=== PATIENT | male | born 1965 | race Caucasian/White ===

== ENCOUNTER 2022-10-27 14:56 | Inpatient (IN) | payer OTHER ==
[2022-10-27 18:09] LABS: BASO % 0.7 % (0-2.0); EOS % 1.6 % (0-4.5); HEMATOCRIT 45.2 % (35.4-49); HEMOGLOBIN 15.5 GM/dL (11.7-16.9); MCH 31.1 pg (25.7-33.7); MCHC 34.2 g/dl (32.0-35.9); MEAN CELL VOLUME 91.1 fl (80-96); MEAN PLT VOLUME 9.4 fl (7.5-11.1); MONO % 5.6 % (3.8-10.2); NEUT % 66.1 % (42.8-82.8); PLATELET COUNT 265 10^3/uL (134-434); RBC 4.97 M/mm3 (4.00-5.60); RDW 14.1 % (11.9-15.9); WHITE BLOOD COUNT 7.4 K/mm3 (4.0-10.0)
[2022-10-27 18:19] LABS: INR 0.95 (0.83-1.09)
[2022-10-27 18:22] LABS: ACTIVATED PTT 35.2 SECONDS (25.2-36.5)
[2022-10-27 18:27] LABS: POTASSIUM 4.6 mmol/L (3.5-5.1)
[2022-10-27 18:29] LABS: CALCIUM 9.1 mg/dL (8.5-10.1)
[2022-10-27 18:30] LABS: ALBUMIN 3.8 g/dl (3.4-5.0); BLOOD UREA NITROGEN 14.9 mg/dL (7-18)
[2022-10-27 18:33] LABS: CREATININE 0.9 mg/dL (0.55-1.3)
[2022-10-27 18:34] LABS: BILIRUBIN,TOTAL 0.3 mg/dL (0.2-1); TOT PROT 7.9 g/dl (6.4-8.2)
[2022-10-27 18:42] LABS: LACTIC ACID 3.2 mmol/L (0.4-2.0)
[2022-10-27] MEDS ORDERED: LACTATED RINGERS SOLUTION 1000 ML INFUS.BAG IV ONE (19:26)
[2022-10-27] MEDS ORDERED: PIPERACILLIN/TAZOB 4.5 GM 4.5 GM in DEXTROSE 5%-WATER 100 ML IVPB ONE (19:26)
[2022-10-27] MEDS ORDERED: VANCOMYCIN 1,000 MG in DEXTROSE 5%-WATER - 250 ML IVPB ONE (19:26)
[2022-10-27] MEDS ORDERED: PIPERACILLIN/TAZOB 4.5 GM 4.5 GM/100 ML BAG IVPB ONE (20:03)
[2022-10-27] MEDS ORDERED: VANCOMYCIN/WATER FOR INJ (PEG) 1,000 MG/200 ML BAG IVPB ONE ×2 (20:24→20:41)
[2022-10-27 21:12] LABS: LACTIC ACID 2.8 mmol/L (0.4-2.0)
[2022-10-27] MEDS: SODIUM CHLORIDE 1,000 ML IV SCH (23:58)
[2022-10-28] MEDS: INSULIN (LEVEMIR) 100 UNITS/ML UNITS SQ SCH ×2 (02:52→21:13)
[2022-10-28] MEDS: PIPERACILLIN/TAZOB 3.375 GM 3.375 GM in DEXTROSE 5%-WATER - 50 ML IVPB SCH ×4 (04:13→16:14)
[2022-10-28 04:42] VITALS: BMI 27.4
[2022-10-28] MEDS: INSULIN SLIDING SCALE (NOVOLOG) 1 VIAL SQ SCH ×4 (06:17→21:12)
[2022-10-28] MEDS ORDERED: VANCOMYCIN HCL 1,500 MG in DEXTROSE 5%-WATER - 250 ML IVPB SCH (09:00)
[2022-10-28] MEDS ORDERED: VANCOMYCIN PREMIX 1.5 GM 1,500 MG/300 ML BAG IVPB SCH (09:00)
[2022-10-28 09:05] LABS: HEMATOCRIT 42.8 % (35.4-49); HEMOGLOBIN 14.5 GM/dL (11.7-16.9); MCH 31.3 pg (25.7-33.7); MEAN PLT VOLUME 9.2 fl (7.5-11.1); PLATELET COUNT 231 10^3/uL (134-434); RBC 4.65 M/mm3 (4.00-5.60); RDW 13.5 % (11.9-15.9); WHITE BLOOD COUNT 5.5 K/mm3 (4.0-10.0)
[2022-10-28 09:12] LABS: POTASSIUM 4.1 mmol/L (3.5-5.1)
[2022-10-28 09:14] LABS: CALCIUM 8.9 mg/dL (8.5-10.1)
[2022-10-28 09:15] LABS: ALBUMIN 3.4 g/dl (3.4-5.0)
[2022-10-28 09:18] LABS: CREATININE 0.9 mg/dL (0.55-1.3)
[2022-10-28 09:19] LABS: BILIRUBIN,TOTAL 0.5 mg/dL (0.2-1)
[2022-10-28 09:20] LABS: TOT PROT 7.2 g/dl (6.4-8.2)
[2022-10-28] MEDS: ENOXAPARIN NA (PORCINE) 40 MG/0.4 ML DISP.SYRIN SQ SCH (09:33)
[2022-10-28] MEDS: COLLAGENASE CLOSTRIDIUM HIST. 30 GRAMS TUBE TP SCH (14:09)
[2022-10-28] MEDS: SODIUM CHLORIDE 1,000 ML IV SCH (16:00)
[2022-10-28] MEDS ORDERED: INSULIN (NOVOLOG) ASPART 100 UNITS/ML 10ML VIAL ONE ×3 (17:39→22:33)
[2022-10-28] MEDS: AMOX TR/POT CLAV 875MG/125MG TABLETS (FP) PO SCH (17:53)
[2022-10-29] MEDS: SODIUM CHLORIDE 1,000 ML IV SCH (00:15)
[2022-10-29] MEDS ORDERED: INSULIN (NOVOLOG) ASPART 100 UNITS/ML 10ML VIAL ONE (05:56)
[2022-10-29] MEDS: INSULIN SLIDING SCALE (NOVOLOG) 1 VIAL SQ SCH ×3 (06:30→17:13)
[2022-10-29] MEDS: AMOX TR/POT CLAV 875MG/125MG TABLETS (FP) PO SCH ×2 (08:09→18:02)
[2022-10-29] MEDS: COLLAGENASE CLOSTRIDIUM HIST. 30 GRAMS TUBE TP SCH (11:02)
[2022-10-29] MEDS: ENOXAPARIN NA (PORCINE) 40 MG/0.4 ML DISP.SYRIN SQ SCH (11:02)
[2022-10-29 15:14] VITALS: BP 140/88; PULSE 70; RESP 18; TEMP 97.9
== END 2022-10-29 18:40 | disposition home or self-care (01) | DRG 383 ==
LOC: JER 14:56 → JERBED 19:55 → J8W 10-28 02:21
PROVIDERS: ADMIT Internal Medicine; ATTEND Nurse Practitioner Family
PROC: 0Y9N0ZZ Drainage of Left Foot, Open Approach (ICD-10-PCS; principal; 2022-10-27)
DX: L08.89 Other specified local infections of the skin and subcutaneous tissue (principal); E87.20 Acidosis, unspecified; M79.675 Pain in left toe(s); M79.674 Pain in right toe(s); L03.032 Cellulitis of left toe
CPT/HCPCS: 36415; 73630-TC-LT; 73630-TC-RT-FY; 80053; 82553; 82962; 83036; 83605; 84484; 85025; 85027; 85610; 85651; 85730; 86140; 86850; 86900; 86901; 87040; 87070; 87205; 93005; 93010; 99285-25

== ENCOUNTER 2023-07-22 10:06 | Emergency (ER) | payer OTHER ==
[2023-07-22 10:10] VITALS: BP 131/67; PULSE 73; RESP 18; TEMP 97.1; BMI 28.2
[2023-07-22] MEDS ORDERED: KETOROLAC TROMETHAMINE 30 MG/1 ML VIAL ONE (13:04)
[2023-07-22] MEDS: KETOROLAC TROMETHAMINE 30 MG/1 ML VIAL IM ONE (13:07)
== END 2023-07-22 13:57 | disposition home or self-care (01) ==
LOC: JERFT 10:06
PROC: 3E0233Z Introduction of Anti-inflammatory into Muscle, Percutaneous Approach (ICD-10-PCS; principal; 2023-07-22)
DX: S62.323A Displaced fracture of shaft of third metacarpal bone, left hand, initial encounter for closed fracture (principal); M79.642 Pain in left hand; W20.8XXA Other cause of strike by thrown, projected or falling object, initial encounter; Y99.0 Civilian activity done for income or pay
CPT/HCPCS: 73110-TC-LT-FY; 73130-TC-LT-FY; 99284-25

== ENCOUNTER 2024-01-09 19:40 | Emergency (ER) | payer OTHER ==
[2024-01-09 20:12] VITALS: BP 121/76; PULSE 74; RESP 20; TEMP 98.8; BMI 29.0
[2024-01-09 22:36] LABS: BASO % 0.8 % (0-2.0); EOS % 2.4 % (0-4.5); HEMATOCRIT 42.2 % (35.4-49); HEMOGLOBIN 14.3 GM/dL (11.7-16.9); LYMPH % 19.2 % (8-40); MCH 30.8 pg (25.7-33.7); MCHC 33.8 g/dl (32.0-35.9); MEAN CELL VOLUME 91.2 fl (80-96); MEAN PLT VOLUME 9.1 fl (7.5-11.1); MONO % 9.7 % (3.8-10.2); NEUT % 67.9 % (42.8-82.8); PLATELET COUNT 189 10^3/uL (134-434); RBC 4.63 M/mm3 (4.00-5.60); RDW 13.9 % (11.9-15.9); WHITE BLOOD COUNT 8.1 K/mm3 (4.0-10.0)
[2024-01-09 22:47] LABS: POTASSIUM 4.9 mmol/L (3.5-5.1)
[2024-01-09 22:48] LABS: CALCIUM 9.2 mg/dL (8.5-10.1)
[2024-01-09 22:49] LABS: BLOOD UREA NITROGEN 22.5 mg/dL (7-18)
[2024-01-09 22:52] LABS: CREATININE 0.9 mg/dL (0.55-1.3)
[2024-01-09 23:44] LABS: HIV INTERPRETATION NEGATIVE (NEGATIVE)
[2024-01-09] MEDS ORDERED: DIPHTH,PERTUSS(ACELL),TET 0.5 ML DISP.SYRIN IM ONE (23:53)
[2024-01-09] MEDS: AMPICILLIN NA/SULBACTAM NA 3 GM in SODIUM CHLORIDE 100 ML IVPB ONE (23:53)
[2024-01-09] MEDS: DIPHTH,PERTUSS(ACELL),TET 0.5 ML DISP.SYRIN IM ONE (23:54)
== END 2024-01-10 00:32 | disposition home or self-care (01) ==
LOC: JERFT 19:40
PROC: 3E03329 Introduction of Other Anti-infective into Peripheral Vein, Percutaneous Approach (ICD-10-PCS; principal; 2024-01-09)
PROC: 3E0234Z Introduction of Serum, Toxoid and Vaccine into Muscle, Percutaneous Approach (ICD-10-PCS; 2024-01-09)
DX: S91.332A Puncture wound without foreign body, left foot, initial encounter (principal); W45.0XXA Nail entering through skin, initial encounter
CPT/HCPCS: 36415; 73630-TC-LT; 80048; 85025; 86803; 87389; 90471; 90715; 96365; 99284-25